=== PATIENT | female | born 1965 | race Caucasian/White ===

== ENCOUNTER → 2017-03-30 | Outpatient (CLI) | payer OTHER | LOC: BMCIMAGING 14:35 | PROVIDERS: ATTEND Internal Medicine | DX: Z12.31 Encounter for screening mammogram for malignant neoplasm of breast (principal) | CPT/HCPCS: G0202 ==

== ENCOUNTER → 2017-12-22 | Outpatient (CLI) | payer OTHER | LOC: BMCIMAGING 09:13 | PROVIDERS: ATTEND Family Medicine | DX: M25.551 Pain in right hip (principal) ==

== ENCOUNTER 2017-12-24 07:20 | Emergency (ER) | payer OTHER ==
--- NOTE | 2017-12-24 08:02 | EDPHY ---
H & P Stated Complaint: Right upper leg pain since Wednesday. Time Seen by Provider: 12/24/17 07:31 - Personal History LMP (Females 10-55): Hysterectomy Current Tetanus Diphtheria and Acellular Pertussis (TDAP): Yes - Medical/Surgical History Hx Asthma: No Hx Chronic Respiratory Disease: No Hx Diabetes: No Hx Cardiac Disease: No Hx Renal Disease: No Hx Cirrhosis: No Hx Alcoholism: No Hx HIV/AIDS: No Hx Splenectomy or Spleen Trauma: No Other PMH: Hysterectomy 2012. - Social History Smoking Status: Never smoked Constitutional: Initial Vital Signs Temperature (C) 36.6 C 12/24/17 07:20 Heart Rate 86 12/24/17 07:20 Respiratory Rate 16 12/24/17 07:20 Blood Pressure 139/80 H 12/24/17 07:20 O2 Sat (%) 97 12/24/17 07:20 O2 Delivery Mode Room Air Allergies/Adverse Reactions: eggs Allergy (Uncoded 12/24/17 07:27) Home Medications: Medication Instructions Recorded Hydrocodone/APAP 5/325 [Lavonia 1 - 2 each PO Q4-6PRN PRN #20 tab 12/24/17 5/325] Nexium 12/24/17 methylPREDNISolone [Medrol Dose 1 each PO AD #1 ea 12/24/17 Stu] Medical Decision Making - Diagnostics Imaging Results: Imaging Impressions Lower Extremity MRI 12/24/17 07:54 Impression: No evidence for a stress fracture of the femur. 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 Lower Extremity MRI 12/24/17 07:56 Impression: 1. Mild tendinopathy gluteus tendon insertion of the right greater trochanter without attenuation more predominant in the gluteus minimus tendon insertion. 2. No evidence for stress fracture of the femoral neck. No evidence for labral tear. 3. Degenerative disk disease lower lumbar spine. Results called and discussed with Chivo Dubois MD on 12/24/2017 at 9:49 a.m. Imaging: Discussed imaging studies w/ mail caller Radiologist, I viewed and interpreted images myself ED Course/Re-evaluation: CHIEF COMPLAINT: Right leg pain HISTORY OF PRESENT ILLNESS: The patient is a 52 y/o female arriving with her family member complaining of progressively worsening pain radiating from her right hip into her groin and down the front of her leg to her knee onset Wednesday , 3 days ago. She has some mild lumbar back pain as well. She has a history of sciatica, but reports it has never radiated down the front of her leg like this before. Her pain is worse with bearing weight and the most severe pain is in the front of her thigh when standing. She describes the pain as cramping in quality and at times associated with waves of nausea and sweating. No fever, chills, myalgias, or preceding trauma. She went to urgent care Wednesday and a hip x-ray at that time was normal. She has been taking Aleve for pain without improvement. She notes she started an ayurvedic cleanse Wednesday with "herbs and stuff" and her pain began directly afterwards. REVIEW OF SYSTEMS: A 10 system review of systems was performed and is negative with the exception of the elements mentioned in the history of present illness. PHYSICAL EXAM: HR, BP, O2 Sat, RR. Temp noted General Appearance: Alert, well hydrated, appropriate, and non-toxic appearing. Head: Atraumatic without scalp tenderness or obvious injury Eyes: Pupils equal, round, reactive to light and accommodation, EOMI, no trauma , no injection. Nose: Atraumatic, no rhinorrhea, clear. Throat: Mucus membranes moist. Neck: Supple, non-tender, no lymphadenopathy. Respiratory: No retractions, no distress, no wheezes, and no accessory muscle use. Lungs are clear to auscultation bilaterally. Cardiovascular: Regular rate and rhythm, no murmurs, rubs, or gallops. Normal right dorsalis pedis pulse. Good capillary refill all extremities. Gastrointestinal: Abdomen is soft, non-tender, non-distended, no masses, no rebound, no guarding, no peritoneal signs. Musculoskeletal: Normal active ROM of all extremities, atraumatic. Hip and thigh pain elicited with standing. Neurological: Alert, appropriate, and interactive. The patient has non-focal cranial nerves, motor, sensory, and cerebellar exam. Skin: No rashes, good turgor, no nodules on palpation. PAST MEDICAL HISTORY: Sciatica PAST SURGICAL HISTORY: Hysterectomy SOCIAL HISTORY: Mother at bedside. Lives in [place]. Employed. DIAGNOSTICS/PROCEDURES/CRITICAL CARE TIME: Hip & thigh MRI w/out contrast: mild gluteus tendinopathy, no stress fracture or labral tear, degenerative disc disease of lower lumbar spine. DIFFERENTIAL DIAGNOSIS: The differential diagnosis for the patient's symptoms included but was not limited to fracture, ligamentous injury, contusion, muscular strain, acetabular labrum tear. MEDICAL DECISION MAKING: This is a 52 y/o female with a history of sciatica who presents with a 3-day history of progressive right hip, groin, and thigh pain exacerbated by bearing weight and walking. Pain is elicited with standing. Normal plain films two days ago at outside facility. Concern for acetabular labral tear or occult fracture. Plan for IV, labs, UA, hip and thigh MRI and symptom management as needed. MRIs are negative for labral tear or occult fracture. Reassessed patient and discussed findings. Plan to treat as lumbar radiculopathy with Medrol dose pack , ibuprofen, and Lavonia. Recommended neurosurgery follow up as needed for unimproved symptoms. Return precautions discussed. She is comfortable with this plan. - Data Points Laboratory Results: Laboratory Results 12/24/17 07:55 12/24/17 07:55 12/24/17 12/24/17 12/24/17 08:50 08:05 07:55 WBC RBC Hgb POC Hgb 16.3 gm/dL gm/dL (12.6-16.3) Hct POC Hct 48 % H % (38-47) MCV MCH MCHC RDW Plt Count MPV Neut % (Auto) Lymph % (Auto) [place] % (Auto) Eos % (Auto) Baso % (Auto) Nucleat RBC Rel Count Absolute Neuts (auto) Absolute Lymphs (auto) Absolute Monos (auto) Absolute Eos (auto) Absolute Basos (auto) Absolute Nucleated RBC Immature Gran % Immature Gran # POC Sodium 144 mEq/L mEq/L (135-145) Sodium 144 mEq/L mEq/L (135-145) POC Potassium 3.7 mEq/L mEq/L (3.3-5.0) Potassium 4.0 mEq/L mEq/L (3.3-5.0) POC Chloride 106 mEq/L mEq/L (97-110) Chloride 104 mEq/L mEq/L (97-110) Carbon Dioxide 27 mEq/l mEq/l (22-31) Anion Gap 13 mEq/L mEq/L (8-16) POC BUN 5 mg/dL L mg/dL (7-23) BUN 7 mg/dL mg/dL (7-23) Creatinine 0.7 mg/dL mg/dL (0.6-1.0) POC Creatinine 0.7 mg/dL mg/dL (0.6-1.0) Estimated GFR > 60 Glucose 111 mg/dL H mg/dL (70-100) POC Glucose 112 mg/dL H mg/dL (70-100) Calcium 11.4 mg/dL H mg/dL (8.5-10.4) Phosphorus 4.8 mg/dL H mg/dL (2.5-4.5) Total Bilirubin 1.2 mg/dL mg/dL (0.1-1.4) Conjugated Bilirubin 0.1 mg/dL mg/dL (0.0-0.5) Unconjugated Bilirubin 1.1 mg/dL mg/dL (0.0-1.1) AST 29 IU/L IU/L (14-46) ALT 32 IU/L IU/L (9-52) Alkaline Phosphatase 62 IU/L IU/L (38-126) Total Protein 7.9 g/dL g/dL (6.3-8.2) Albumin 4.7 g/dL g/dL (3.5-5.0) Lipase 102 IU/L IU/L (23-300) Urine Color PALE YELLOW Urine Appearance CLEAR Urine pH 8.0 H (5.0-7.5) Ur Specific [place] 1.002 (1.002-1.030) Urine Protein NEGATIVE (NEGATIVE) Urine Ketones NEGATIVE (NEGATIVE) Urine Blood NEGATIVE (NEGATIVE) Urine Nitrate NEGATIVE (NEGATIVE) Urine Bilirubin NEGATIVE (NEGATIVE) Urine Urobilinogen NEGATIVE EU EU (0.2-1.0) Ur Leukocyte Esterase NEGATIVE (NEGATIVE) Urine Glucose NEGATIVE (NEGATIVE) 12/24/17 07:55 WBC 8.09 10^3/uL 10^3/uL (3.80-9.50) RBC 5.20 10^6/uL 10^6/uL (4.18-5.33) Hgb 15.6 g/dL g/dL (12.6-16.3) POC Hgb Hct 46.6 % % (38.0-47.0) POC Hct MCV 89.6 fL fL (81.5-99.8) MCH 30.0 pg pg (27.9-34.1) MCHC 33.5 g/dL g/dL (32.4-36.7) RDW 13.7 % % (11.5-15.2) Plt Count 306 10^3/uL 10^3/uL (150-400) MPV 11.2 fL fL (8.7-11.7) Neut % (Auto) 62.0 % % (39.3-74.2) Lymph % (Auto) 28.4 % % (15.0-45.0) [place] % (Auto) 7.8 % % (4.5-13.0) Eos % (Auto) 1.2 % % (0.6-7.6) Baso % (Auto) 0.4 % % (0.3-1.7) Nucleat RBC Rel Count 0.0 % % (0.0-0.2) Absolute Neuts (auto) 5.01 10^3/uL 10^3/uL (1.70-6.50) Absolute Lymphs (auto) 2.30 10^3/uL 10^3/uL (1.00-3.00) Absolute Monos (auto) 0.63 10^3/uL 10^3/uL (0.30-0.80) Absolute Eos (auto) 0.10 10^3/uL 10^3/uL (0.03-0.40) Absolute Basos (auto) 0.03 10^3/uL 10^3/uL (0.02-0.10) Absolute Nucleated RBC 0.00 10^3/uL 10^3/uL (0-0.01) Immature Gran % 0.2 % % (0.0-1.1) Immature Gran # 0.02 10^3/uL 10^3/uL (0.00-0.10) POC Sodium Sodium POC Potassium Potassium POC Chloride Chloride Carbon Dioxide Anion Gap POC BUN BUN Creatinine POC Creatinine Estimated GFR Glucose POC Glucose Calcium Phosphorus Total Bilirubin Conjugated Bilirubin Unconjugated Bilirubin AST ALT Alkaline Phosphatase Total Protein Albumin Lipase Urine Color Urine Appearance Urine pH Ur Specific [place] Urine Protein Urine Ketones Urine Blood Urine Nitrate Urine Bilirubin Urine Urobilinogen Ur Leukocyte Esterase Urine Glucose Medications Given: Discontinued Medications Lorazepam (Ativan Injection) 1 mg IVP EDNOW ONE Stop: 12/24/17 08:43 Last Admin: 12/24/17 08:43 Dose: 1 mg Point of Care Test Results: Chemistry 12/24/17 08:05 POC Sodium 144 mEq/L mEq/L (135-145) POC Potassium 3.7 mEq/L mEq/L (3.3-5.0) POC Chloride 106 mEq/L mEq/L (97-110) POC BUN 5 mg/dL L mg/dL (7-23) POC Creatinine 0.7 mg/dL mg/dL (0.6-1.0) POC Glucose 112 mg/dL H mg/dL (70-100) ISTAT H&H 12/24/17 08:05 POC Hgb 16.3 gm/dL gm/dL (12.6-16.3) POC Hct 48 % H % (38-47) Departure - Departure Disposition: Home, Routine, Self-Care Clinical Impression: Lumbar radiculopathy Condition: Good Instructions: Lumbar Radiculopathy (ED) Additional Instructions: 1. Take Medrol dose pack as prescribed. Be sure to complete the entire prescription. 2. Take 800mg ibuprofen every 8 hours for pain and inflammation over the next few days. 3. Take Lavonia as prescribed when needed for severe pain. This medication can make you drowsy and constipated. Do not use prior to driving. 4. Follow up with neurosurgery for unimproved symptoms over the next several days. 5. Return to the ED for severe pain, weakness, numbness, urinary or bowel incontinence, fever, or other worsening of condition. Referrals: Annie Melendez MD [Primary Care Provider] - As per Instructions Rome Julian MD [Medical Doctor] - As per Instructions Prescriptions: Hydrocodone/APAP 5/325 [[place] 5/325] 1 - 2 each PO Q4-6PRN PRN #20 tab PRN Reason: Pain, Moderate methylPREDNISolone [Medrol Dose Stu] 1 each PO AD #1 ea Report Scribed for: Chivo Dubois Report Scribed by: Gemma Marroquin Date of Report: 12/24/17 Time of Report: 10:34
[2017-12-24 08:10] LABS: PLATELET COUNT 306 10^3/uL (150-400)
[2017-12-24] MEDS ORDERED: LORazepam 2 MG/ML INJ ONE (08:39)
[2017-12-24] MEDS ORDERED: LORazepam 2 MG/ML INJ IVP ONE (08:42)
[2017-12-24 10:56] VITALS: BP 128/78
== END 2017-12-24 10:55 | disposition home or self-care (01) ==
DX: M51.36 Other intervertebral disc degeneration, lumbar region (principal)
CPT/HCPCS: 82435-PO; 82565-PO; 82947-PO; 84132-PO; 84295-PO; 84520-PO; 85014-PO; 96374; J2060